=== PATIENT | male | born 1985 | race Asian ===

== ENCOUNTER 2017-03-13 14:57 | Inpatient (IN) | payer OTHER ==
[~2017-03-13] VITALS: Ht 165.1 cm; Wt 82.6 kg
[~2017-03-13 14:57] MED LIST: FERROUS SULFATE 325MG TAB PO SCH
[2017-03-13 16:07] LABS: ALBUMIN 3.6 GM/DL (3.2-5.2); ALKALINE PHOSPHATASE 18 U/L (45-117); ALT/SGPT 24 U/L (12-78); ANION GAP 10 MEQ/L (8-16); AST/SGOT 34 U/L (15-37); BILIRUBIN,TOTAL 0.4 MG/DL (0.2-1.0); BLOOD UREA NITROGEN 12 MG/DL (7-18); CALCIUM LEVEL 8.4 MG/DL (8.5-10.1); CARBON DIOXIDE LEVEL 24 MEQ/L (21-32); CHLORIDE LEVEL 106 MEQ/L (98-107); CREATININE FOR GFR 1.32 MG/DL (0.70-1.30); GLOMERULAR FILTRATION RATE > 60.0 (>60); GLUCOSE, FASTING 82 MG/DL (70-105); POTASSIUM SERUM 4.2 MEQ/L (3.5-5.1); SODIUM LEVEL 140 MEQ/L (136-145); TOTAL PROTEIN 7.2 GM/DL (6.4-8.2)
[2017-03-13] MEDS ORDERED: AMBI10TA PO (16:15)
[2017-03-13] MEDS ORDERED: FERR325T PO (16:15)
[2017-03-13] MEDS ORDERED: PATIENT COMMENT (16:19)
[2017-03-13 16:42] LABS: ADD MORPHOLOGY? YES; BASO % 0.3 % (0.0-1.0); EOS # 0.1 K/mm3 (0.0-0.50); EOS % 2.1 % (0.0-3.0); LARGE UNSTAINED CELL # 0.1 K/mm3 (0.0-0.4); LARGE UNSTAINED CELL % 1.8 % (0.0-4.0); LYMPH # 1.3 K/mm3 (1.5-4.5); LYMPH % 23.2 % (24.0-44.0); MEAN CORPUSCULAR HGB CONC 28.7 g/dl (32.0-36.5); MONO # 0.4 K/mm3 (0.0-0.8); MONO % 7.6 % (0.0-5.0); NEUTROPHILS # 3.5 K/mm3 (1.8-7.7); PLATELET COUNT, AUTOMATED 216 k/mm3 (150-450); RED CELL DISTRIBUTION WIDTH 20.5 % (11.5-14.5); WHITE BLOOD COUNT 5.4 K/mm3 (4.0-10.0)
[2017-03-13 17:57] LABS: RETIC HEMOGLOBIN CONTENT CHr 18.7 PG (24-36); RETICULOCYTE % ADVIA2120 1.55 % (0.5-1.5)
[2017-03-13 18:07] LABS: ANISOCYTOSIS 2+; HYPOCHROMASIA 3+; MICROCYTOSIS 3+
[2017-03-13 18:09] LABS: SCHISTOCYTES 1+; TARGET CELLS 1+
--- NOTE | 2017-03-13 18:09 | HPEPDOC ---
General Date of Admission Mar 13, 2017 at 17:30 Chief Complaint The patient is a 31-year-old male admitted with a reason for visit of Rectal Bleeding. 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 generalized fatigue and shortness of breath that has been occurring for the past 1 week. The patient states that he is normally a very active and healthy individual but that he feels his exercise tolerance has decreased drastically over the past 1 week, he thinks he could not climb one flight of stairs without becoming acutely short of breath. He is also noticed that for the past week whenever he goes from a laying down or seated position to standing he becomes dizzy for a couple minutes, he denies loss of consciousness or passing out. The patient carries a history of thalassemia type B that was diagnosed in 2011, he has received one blood transfusion in the past in the same year and was also given a course of iron infusion. The patient also states that he has hemorrhoids that were banded one year ago. He has also undergone upper endoscopy and colonoscopy in the year 2012 for bright red blood per rectum. He states that he has had bright red blood per rectum again that began 6 months ago but has been very intermittent until one week ago, he now says that every bowel movement produces blood mixed in the stool, on the and in the toilet both bright red and dark coffee- ground in color. He denies any abdominal pain or pain with defecation, denies any changes in urinary habit or blood in urine, denies pain with urination. He denies nausea or vomiting or change in vision. The patient denies any changes in his diet or consuming red colored food. He otherwise states that he is healthy and has no complaints and is in no pain. Home Medications Scheduled Ferrous Sulfate (Ferrous Sulfate) 325 Mg Tab, 325 MG PO DAILY, (Reported) NEW MED, HAS NOT STARTED YET Zolpidem Tartrate (Ambien) 10 Mg Tab, 10 MG PO QHS, (Reported) Miscellaneous Medications [Patient Comment] , (Reported) PATIENT WAS TAKING TRAZODONE AND PRAZOSIN, HASN'T TAKEN IN ABOUT A MONTH BECAUSE HE DID NOT LIKE THE SIDE EFFECTS Allergies Coded Allergies: Penicillins (Verified Allergy, Severe, swelling, 03/13/17) Past Medical History Medical History Thalassemia type B hemorrhoids status post banding procedure 2016 Surgical History MRI banding procedure 2016 Oral surgery for a cavity Patient states that 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 and had surgery to his right ankle Family History The patient states that many members of his family have anemia and that his brother is going through similar symptoms to his right now Dad has hypertension There is a history of lung, thyroid and liver cancer in the family Social History * Smoker: former Smoker (patient states that he stopped smoking in 2016, prior to this to smoking one to 2 packs per week and began when he was a teen) Alcohol: rarely (1-3 glasses of wine per week since he was a teenager) Drugs: denies 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 Review of Symptoms Constitutional: Denies: Chills, Fever, Malaise Eyes: Reports: Other, Denies: Pain, Vision change, Conjunctivae inflammation, Eyelid inflammation Skin: Denies: Rash Pulmonary: Denies: Dyspnea, Cough Cardiovascular: Denies: Chest Pain, Palpitations Gastrointestinal: Reports: Melena, Denies: Nausea, Vomiting, Abdominal Pain, Diarrhea, Constipation Genitourinary: Denies: Dysuria, Frequency Hematologic: Denies: Bruising Neurological: Reports: Weakness, Denies: Numbness Psych: Reports: Mood Normal Physical Examination General Exam: Positive: Alert, Cooperative, No Acute Distress Eye Exam: Positive: Conjunctiva & lids normal, Other Eye Symptoms (pallor conjunctival bilateral), Negative: EOMI, Sclera icteric, Ptosis Neck Exam: Positive: Supple Chest Exam: Positive: Clear to auscultation, Normal air movement, Negative: Rales, Rhonchi, Wheezing, Diminished Heart Exam: Positive: Rate Normal, Regular Rhythm, Normal S1, Normal S2, Negative: Tachycardic, Bradycardic Abdomen Exam: Positive: Normal bowel sounds, Soft, Negative: BS Hyperactive, BS Hypoactive, Tenderness, Hepatospenomegaly Extremity Exam: Positive: Normal pulses, Negative: Clubbing, Cyanosis, Edema, Tenderness, Swelling Psych Exam: Positive: Mental status NL Vital Signs Vital Signs Date Time Temp Pulse Resp B/P (MAP) Pulse Ox O2 Delivery O2 Flow Rate FiO2 03/13/17 15:04 98.0 90 16 134/79 (97) 99 Laboratory Data Labs 24H Laboratory Tests 2 03/13/17 15:34: White Blood Count 5.4, Red Blood Count 3.98L, Hemoglobin 6.7*L, Hematocrit 23.5L , Mean Corpuscular Volume 59.0L, Mean Corpuscular Hemoglobin 17.0L, Mean Corpuscular Hemoglobin Concent 28.7L, Red Cell Distribution Width 20.5H, Platelet Count 216, Neutrophils (%) (Auto) 65.0, Lymphocytes (%) (Auto) 23.2L, Monocytes (%) (Auto) 7.6H, Eosinophils (%) (Auto) 2.1, Basophils (%) (Auto) 0.3 , Neutrophils # (Auto) 3.5, Lymphocytes # (Auto) 1.3L, Monocytes # (Auto) 0.4, Eosinophils # (Auto) 0.1, Basophils # (Auto) 0.0, Large Unclassified Cells % 1.8 , Large Unclassified Cells # 0.1, Anion Gap 10, Glomerular Filtration Rate > 60.0, Blood Urea Nitrogen 12, Creatinine 1.32H, Sodium Level 140, Potassium Level 4.2, Chloride Level 106, Carbon Dioxide Level 24, Calcium Level 8.4L, Aspartate Amino Transf (AST/SGOT) 34, Alanine Aminotransferase (ALT/SGPT) 24, Alkaline Phosphatase 18L, Total Bilirubin 0.4, Total Protein 7.2, Albumin 3.6, Albumin/Globulin Ratio 1.00 03/13/17 17:40: Absolute Reticulocyte Count 60, Percent Reticulocyte Count 1.55H, Reticulocyte Hgb Content (CHr) 18.7L CBC/BMP Laboratory Tests 03/13/17 15:34 Red Blood Count 3.98 L, Mean Corpuscular Volume 59.0 L, Mean Corpuscular Hemoglobin 17.0 L, Mean Corpuscular Hemoglobin Concent 28.7 L, Red Cell Distribution Width 20.5 H, Neutrophils (%) (Auto) 65.0, Lymphocytes (%) (Auto) 23.2 L, Monocytes (%) (Auto) 7.6 H, Eosinophils (%) (Auto) 2.1, Basophils (%) ( Auto) 0.3, Neutrophils # (Auto) 3.5, Lymphocytes # (Auto) 1.3 L, Monocytes # ( Auto) 0.4, Eosinophils # (Auto) 0.1, Basophils # (Auto) 0.0, Calcium Level 8.4 L , Aspartate Amino Transf (AST/SGOT) 34, Alanine Aminotransferase (ALT/SGPT) 24, Alkaline Phosphatase 18 L, Total Bilirubin 0.4, Total Protein 7.2, Albumin 3.6 Problems (1) Rectal bleeding Status: Acute Response to Treatment: Stable Problem Text: Stool occult in emergency department was grossly positive Patient is status post banding for hemorrhoids in 2016 by GI doctor in [facility] Patient's hemoglobin upon presentation was 6 Have ordered iron, reticulocyte count, TIBC, ferritin, folate and [id number] Will transfuse 2 units of packed red blood cells and repeat H&H Continue to monitor (2) Blood loss anemia Status: Acute Response to Treatment: Stable Problem Text: Stool occult in emergency department was grossly positive Will consult GI for possible colonoscopy and upper endoscopy tomorrow Patient's hemoglobin upon presentation was 6 Have ordered iron, reticulocyte count, TIBC, ferritin, folate and [id number] Will transfuse 2 units of packed red blood cells and repeat H&H Continue to monitor (3) Dizziness Status: Acute Response to Treatment: Stable Problem Text: Likely secondary to anemia will begin IV fluid hydration and continue to monitor (4) Shortness of breath Status: Acute Response to Treatment: Stable Problem Text: Likely secondary to anemia Patient did not appear short of breath on exam and did not state that he was short of breath Will continue to monitor Patient will receive 2 units of packed red blood cells (5) Thalassemia trait, beta Status: Chronic Response to Treatment: Stable Problem Text: History of Will transfuse 2 units packed blood cells and repeat H&H (6) ILYA (acute kidney injury) Status: Acute Response to Treatment: Stable Problem Text: Family 1.32 Patient was mildly orthostatic in emergency Department We will begin normal saline fluid hydration (7) DVT prophylaxis Status: Acute Response to Treatment: Stable Problem Text: SCD teds Plan / VTE VTE Prophylaxis Ordered?: Yes GME ATTESTATION GME ATTESTATION My preceptor for this patient encounter was physically present in the building during the encounter and was fully available. As needed, all aspects of the patient interview, examination, medical decision making process, and medical care plan development were reviewed and approved by the preceptor. Preceptor is aware and concurs with the plan as stated in the body of this note and will attest to such by his/her cosignature. DEJON PHIPPS DO Mar 13, 2017 18:09
[2017-03-13 18:10] LABS: FERRITIN 4 NG/ML (26-388); PERCENT SATURATION 3.9 % (19.7-37.4); TOTAL IRON BINDING CAPACITY 485 UG/DL (250-450)
[2017-03-13] MEDS: NS 1,000 ML IV SCH (18:15)
[2017-03-13 18:47] LABS: VITAMIN B12 LEVEL 417 PG/ML (247-911)
[2017-03-13 18:48] LABS: FOLATE > 24.0 NG/ML (>5.4)
[2017-03-13] MEDS ORDERED: zolPIDEM TARTRATE 10MG TAB PO SCH (21:00)
[2017-03-13] MEDS: zolPIDEM TARTRATE 5 MG TAB PO SCH (21:00)
[2017-03-13] MEDS ORDERED: zolPIDEM TARTRATE 5 MG TAB PO SCH (21:53)
[2017-03-14] MEDS ORDERED: GOLYTELY SOLN 4000 ML BTL PO ONE (06:00)
[2017-03-14 07:47] LABS: ANION GAP 8 MEQ/L (8-16); BLOOD UREA NITROGEN 12 MG/DL (7-18); CALCIUM LEVEL 7.7 MG/DL (8.5-10.1); CARBON DIOXIDE LEVEL 24 MEQ/L (21-32); CHLORIDE LEVEL 108 MEQ/L (98-107); CREATININE FOR GFR 1.32 MG/DL (0.70-1.30); GLOMERULAR FILTRATION RATE > 60.0 (>60); GLUCOSE, FASTING 89 MG/DL (70-105); POTASSIUM SERUM 3.8 MEQ/L (3.5-5.1); SODIUM LEVEL 140 MEQ/L (136-145)
[2017-03-14 07:55] LABS: DIFF SLIDE NUMBER 83; MEAN CORPUSCULAR HEMOGLOBIN 19.7 pg (27.0-33.0); MEAN CORPUSCULAR HGB CONC 31.1 g/dl (32.0-36.5); MEAN CORPUSCULAR VOLUME 63.5 fl (80.0-96.0); PLATELET COUNT, AUTOMATED 193 k/mm3 (150-450); RED CELL DISTRIBUTION WIDTH 23.8 % (11.5-14.5); WHITE BLOOD COUNT 4.4 K/mm3 (4.0-10.0)
[2017-03-14 08:20] VITALS: BP 144/98
[2017-03-14 08:41] LABS: ANISOCYTOSIS 2+; BANDS 1 % (< 11); EOSINOPHILS 2 % (0-5); HYPOCHROMASIA 2+; POIKILOCYTOSIS 1+
[2017-03-14 08:42] LABS: MICROCYTOSIS 2+; SCHISTOCYTES 1+
--- NOTE | 2017-03-14 15:11 | IPN ---
DATE: 03/14/2017 Patient seen and examined. No acute events overnight. Patient continued to have bright red blood per rectum. Denies any chest pain, pressure, discomfort. Denies any shortness of breath. Currently undergoing bowel prep. VITAL SIGNS: Temperature 98.3, pulse 63, respirations 16, blood pressure 114/66, pulse oximetry 97% on room air. LABORATORY: WBC 4.4, hemoglobin and hematocrit (H and H) 8/25.8, platelets 183. Chemistry: Sodium 140, potassium 3.8, chloride 108, bicarbonate 24, BUN 12, creatinine 1.32. PHYSICAL EXAMINATION: GENERAL: Patient alert and oriented times three. No acute distress. HEENT: Normocephalic, atraumatic. PULMONARY: Bilateral clear to auscultation. CARDIAC: Regular rate and rhythm. Normal S1, S2. ABDOMEN: Soft, nontender, nondistended. Positive bowel sounds. No hepatosplenomegaly. EXTREMITIES: No edema bilateral lower extremities. ASSESSMENT AND PLAN: This is a 31-year-old male patient, active duty from [place], underlying medical history of thalassemia type B, hemorrhoids status post banding and procedure in 09/2016. Bending procedure 09/2016 presented with complaints of lightheadedness upon standing, bright red blood per rectum. Per patient, patient has been bleeding for a while, generalized fatigue and shortness of breath that has been occurring for the past one week. PROBLEMS: 1. Symptomatic anemia with acute blood loss anemia with rectal bleeding. Fecal occult positive. Transfused 2 units packed red blood cells. Follow up hemoglobin and hematocrit (H and H). Anemia workup appreciated. Gastroenterology consulted. Will be undergoing esophagogastroduodenoscopy (EGD)/colonoscopy later today. Continue to monitor. Follow up hemoglobin and hematocrit (H and H). Transfuse as needed. 2. Lightheadedness secondary to acute blood loss anemia. Refer to above. 3. Shortness of breath secondary to acute blood loss anemia. Refer to above. 4. History of beta-thalassemia trait. History of transfusion 2 units packed red blood cells in the past. Will monitor hemoglobin and hematocrit (H and H). Continue to follow. Outpatient follow up. 5. Acute kidney injury (ILYA). Creatinine 1.3, unknown baseline. Will continue to follow BUN and creatinine. 6. Deep venous thrombosis (DVT) prophylaxis. Avoid pharmacological anticoagulation. Sequential compression device. DISPOSITION: Pending esophagogastroduodenoscopy (EGD)/colonoscopy. Monitor hemoglobin and hematocrit (H and H).
[2017-03-14 19:35] VITALS: BP 143/79
[2017-03-14] MEDS ORDERED: PROPOFOL 500 MG/50 ML VIAL As Ordered ONE (20:23)
[2017-03-14] MEDS ORDERED: LIDOCAINE 2% INJ 100 MG/5 ML SDV (FOR ANES.) As Ordered ONE (20:23)
--- NOTE | 2017-03-14 21:01 | ROOR ---
Patient Name: Chip Segal Procedure Date: 03/14/2017 7:58 PM Date of : 1985 Age: 31 Gender: Male Note Status: Finalized Procedure: Colonoscopy Indications: Hematochezia, Anal bleeding, (pt with baseline Hb ~10gm related to Thalassemia, pt presents with persistent rectal bleeding, symptomatic anemia) Providers: Rajeev BOYKIN MD Referring MD: ANTONY HARDY MD, 2. Inpatient 2. Inpatient Requesting Provider: Medicines: Monitored Anesthesia Care Complications: No immediate complications. Procedure: Pre-Anesthesia Assessment: - The heart rate, respiratory rate, oxygen saturations, blood pressure, adequacy of pulmonary ventilation, and response to care were monitored throughout the procedure. The Colonoscope was introduced through the anus and advanced to 5 cm into the ileum. The colonoscopy was performed without difficulty. The patient tolerated the procedure well. The quality of the bowel preparation was good. Findings: The perianal and digital rectal examinations were normal. Pertinent negatives include no anal lesion or abnormality was detected. Non-thrombosed internal hemorrhoids were found during retroflexion. The hemorrhoids were Grade II (internal hemorrhoids that prolapse but reduce spontaneously) and Grade III (internal hemorrhoids that prolapse but require manual reduction). The entire examined colon appeared normal. The terminal ileum appeared normal. Impression: - Moderate internal hemorrhoids (grade 2/3). - The entire examined colon is normal. - The examined portion of the ileum was normal. - No specimens collected. Recommendation: - Refer to a surgeon for hemorrhoidectomy. Rajeev Boykin MD Rajeev BOYKIN MD 03/14/2017 9:01:32 PM This report has been signed electronically. Number of Addenda: 0 Note Initiated On: 03/14/2017 7:58 PM Estimated Blood Loss: Estimated blood loss: none.
--- NOTE | 2017-03-14 21:06 | ROOR ---
Patient Name: Chip Segal Procedure Date: 03/14/2017 9:02 PM Date of : 1985 Age: 31 Gender: Male Note Status: Finalized Procedure: Upper GI endoscopy Indications: Acute post hemorrhagic anemia, Iron deficiency anemia secondary to chronic blood loss, Unexplained iron deficiency anemia, (pt with thalassemia) Providers: Rajeev BOYKIN MD Referring MD: ANTONY HARDY MD, 2. Inpatient 2. Inpatient Requesting Provider: Medicines: Monitored Anesthesia Care Complications: No immediate complications. Procedure: Pre-Anesthesia Assessment: - The heart rate, respiratory rate, oxygen saturations, blood pressure, adequacy of pulmonary ventilation, and response to care were monitored throughout the procedure. The Endoscope was introduced through the mouth, and advanced to the second part of duodenum. Findings: The examined esophagus was normal. The entire examined stomach was normal. The examined duodenum was normal. Biopsies for histology were taken with a cold forceps for evaluation of celiac disease. Impression: - Normal esophagus. - Normal stomach. - Normal examined duodenum. Biopsied. Recommendation: - Observe patient's clinical course. Rajeev Boykin MD Rajeev BOYKIN MD 03/14/2017 9:06:10 PM This report has been signed electronically. Number of Addenda: 0 Note Initiated On: 03/14/2017 9:02 PM Estimated Blood Loss: Estimated blood loss: none.
[2017-03-14] MEDS ORDERED: ONDANSETRON 4MG/2ML VIAL (J2405) IV PRN (21:15)
[2017-03-14] MEDS ORDERED: LR 1,000 ML IV SCH (21:15)
[2017-03-14 21:30] VITALS: BP 122/82
[2017-03-14 22:00] VITALS: BP 136/86
[2017-03-14] MEDS: NS 1,000 ML IV SCH (22:15)
[2017-03-14 23:00] VITALS: BP 134/72
[2017-03-15] VITALS: BP 137/70
[2017-03-15] MEDS: zolPIDEM TARTRATE 5 MG TAB PO SCH (00:28)
[2017-03-15] MEDS: NS 1,000 ML IV SCH (00:52)
[2017-03-15 01:00] VITALS: BP 130/80
[2017-03-15 02:00] VITALS: BP 132/79
[2017-03-15 04:45] VITALS: BP 118/74
[2017-03-15 05:36] LABS: ADD MORPHOLOGY? YES; BASO % 0.2 % (0.0-1.0); EOS # 0.1 K/mm3 (0.0-0.50); EOS % 2.6 % (0.0-3.0); LARGE UNSTAINED CELL # 0.1 K/mm3 (0.0-0.4); LYMPH # 1.3 K/mm3 (1.5-4.5); LYMPH % 23.7 % (24.0-44.0); MEAN CORPUSCULAR HEMOGLOBIN 20.5 pg (27.0-33.0); MEAN CORPUSCULAR HGB CONC 31.4 g/dl (32.0-36.5); MEAN CORPUSCULAR VOLUME 65.4 fl (80.0-96.0); MONO # 0.4 K/mm3 (0.0-0.8); MONO % 7.3 % (0.0-5.0); NEUTROPHILS # 3.4 K/mm3 (1.8-7.7); NEUTROPHILS % 64.2 % (36.0-66.0); PLATELET COUNT, AUTOMATED 197 k/mm3 (150-450); RED CELL DISTRIBUTION WIDTH 24.8 % (11.5-14.5); WHITE BLOOD COUNT 5.3 K/mm3 (4.0-10.0)
[2017-03-15 05:39] LABS: ANION GAP 8 MEQ/L (8-16); BLOOD UREA NITROGEN 11 MG/DL (7-18); CALCIUM LEVEL 8.1 MG/DL (8.5-10.1); CARBON DIOXIDE LEVEL 26 MEQ/L (21-32); CHLORIDE LEVEL 107 MEQ/L (98-107); CREATININE FOR GFR 1.28 MG/DL (0.70-1.30); GLOMERULAR FILTRATION RATE > 60.0 (>60); GLUCOSE, FASTING 83 MG/DL (70-105); POTASSIUM SERUM 3.8 MEQ/L (3.5-5.1); SODIUM LEVEL 141 MEQ/L (136-145)
[2017-03-15 06:43] LABS: ANISOCYTOSIS 3+; HYPOCHROMASIA 2+; MICROCYTOSIS 3+
[2017-03-15 06:44] LABS: TARGET CELLS 1+
[2017-03-15 08:00] VITALS: BP 119/65
[2017-03-15] MEDS ORDERED: COLA100C3 PO (10:49)
[2017-03-15] MEDS ORDERED: ASCO25TA PO (10:49)
[2017-03-15 12:00] VITALS: BP 138/58
--- NOTE | 2017-03-15 12:19 | DS.PDOC ---
Discharge Summary General Date of Admission Mar 13, 2017 at 17:30 Date of Discharge 03-15-17 Discharge Summary PROCEDURES PERFORMED DURING STAY: colonoscopy, EGD ADMITTING DIAGNOSES: 1. Rectal bleeding 2. Blood loss anemia 3. Dizziness 4. Shortness of breath 5. Thalassemia trait, beta 6. Acute kidney injury DISCHARGE DIAGNOSES: 1. Symptomatic anemia with acute blood loss anemia with rectal bleeding 2. Lightheadedness secondary to acute blood loss anemia 3. Shortness of breath secondary to acute blood loss anemia 4. History of beta thalassemia trait 5. Acute kidney injury COMPLICATIONS/CHIEF COMPLAINT: Rectal Bleeding, SOB, fatigue. 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 generalized fatigue and shortness of breath that has been occurring for the preceeding 1 week. HOSPITAL COURSE: During the course of the patient's hospital stay he was found to be occult blood grossly positive in the ED and did undergo colonoscopy and upper endoscopy with gastroenterology where it was discovered that he had Grade 2 and 3 internal non-thrombosed hemorrhoids. The patient received 3 units of blood during his stay and on day of discharge hemoglobin was 8.6. The patient had 1 bright red bloody bowel movement the night before discharge. General surgery was consulted and saw the patient and recommended that he follow up within 1 week for hemorrhoidectomy. The patient was asked not to return to active duty until the bleeding had resolved and he had followed up with healthcare provider. He will be given iron, vitamin C, stool softener. Patient was instructed that if he becomes dizzy, fatigued or has shortness of breath to come back to the emergency department for blood check. On day of discharge he seemed happy to be going home and understood he needed to follow-up with Gen. surgery for hemorrhoidectomy within 1 week of discharge. DISCHARGE MEDICATIONS: Please see below. ALLERGIES: Please see below. PHYSICAL EXAMINATION ON DISCHARGE: VITAL SIGNS: Please see below. GENERAL: Laying down comfortably in bed, pleasant, comfortable in no acute distress HEENT: Normocephalic atraumatic, EOMI, nares patent bilaterally, moist mucous membranes NECK: Supple CARDIOVASCULAR EXAMINATION: Normal S1, S2, no murmurs, rubs, gallops appreciated. NSR. RESPIRATORY EXAMINATION: Good air expansion and effort bilaterally, no wheezing , rales, rhonchi, crackles appreciated. Clear to auscultation bilaterally. ABDOMINAL EXAMINATION: Soft, nondistended, no rebound rigidity or guarding, no organomegaly. NABS 4 EXTREMITIES: Nailbeds without pitting or clubbing, no cyanosis or edema appreciated SKIN: Intact NEUROLOGICAL EXAMINATION: No focal deficits appreciated PSYCHIATRIC EXAMINATION: Normal affect and appropriate demeanor LABORATORY DATA: Please see below. IMAGING: none PROGNOSIS: Stable ACTIVITY: Patient was instructed not to return to active duty until bleeding stopped and he was evaluated by healthcare professional, he was given a note that stated this to give to his superiors. The patient understood fully and had no questions. DIET: As tolerated DISCHARGE PLAN: Please follow up with primary care doctor and surgery within 5- 7 days of discharge. Please do not return to active duty until bleeding stops and evaluated by healthcare professional. If patient experiences fatigue, shortness of breath, dizziness he was asked to come to the emergency department as soon as possible for h/h check. DISPOSITION: Stable DISCHARGE INSTRUCTIONS: 1. Follow up with surgery within 5-7 days of discharge 2. Follow up with PCP within 5-7 days of discharge 3. Do not return to active duty until bleeding has stopped and you have been evaluated by healthcare professional. ITEMS TO FOLLOWUP ON ON OUTPATIENT: 1. Follow up with surgery within 5-7 days of discharge 2. Follow up with PCP within 5-7 days of discharge 3. Do not return to active duty until bleeding has stopped and you have been evaluated by healthcare professional. DISCHARGE CONDITION: Stable TIME SPENT ON DISCHARGE: Greater than 20 minutes. Vital Signs/I&Os Vital Signs Date Time Temp Pulse Resp B/P (MAP) Pulse Ox O2 Delivery O2 Flow Rate FiO2 03/15/17 12:00 98.6 74 18 138/58 (84) 97 Room Air I&O- Last 24 Hours up to 6 AM 03/15/17 05:59 Intake Total 3580 ml Output Total 750 ml Balance 2830 ml Laboratory Data Labs 24H Laboratory Tests 2 03/15/17 05:01: White Blood Count 5.3, Red Blood Count 4.19L, Hemoglobin 8.6L, Hematocrit 27.4L , Mean Corpuscular Volume 65.4L, Mean Corpuscular Hemoglobin 20.5L, Mean Corpuscular Hemoglobin Concent 31.4L, Red Cell Distribution Width 24.8H, Platelet Count 197, Neutrophils (%) (Auto) 64.2, Lymphocytes (%) (Auto) 23.7L, Monocytes (%) (Auto) 7.3H, Eosinophils (%) (Auto) 2.6, Basophils (%) (Auto) 0.2 , Neutrophils # (Auto) 3.4, Lymphocytes # (Auto) 1.3L, Monocytes # (Auto) 0.4, Eosinophils # (Auto) 0.1, Basophils # (Auto) 0.0, Large Unclassified Cells % 2.0 , Large Unclassified Cells # 0.1, Platelet Estimate NORMAL, Hypochromasia 2+, Anisocytosis 3+, Microcytosis 3+, Target Cells 1+, Anion Gap 8, Glomerular Filtration Rate > 60.0, Blood Urea Nitrogen 11, Creatinine 1.28, Sodium Level 141, Potassium Level 3.8, Chloride Level 107, Carbon Dioxide Level 26, Calcium Level 8.1L CBC/BMP Laboratory Tests 03/14/17 15:48 03/15/17 02:31 03/15/17 05:01 Red Blood Count 4.19 L, Mean Corpuscular Volume 65.4 L, Mean Corpuscular Hemoglobin 20.5 L, Mean Corpuscular Hemoglobin Concent 31.4 L, Red Cell Distribution Width 24.8 H, Neutrophils (%) (Auto) 64.2, Lymphocytes (%) (Auto) 23.7 L, Monocytes (%) (Auto) 7.3 H, Eosinophils (%) (Auto) 2.6, Basophils (%) ( Auto) 0.2, Neutrophils # (Auto) 3.4, Lymphocytes # (Auto) 1.3 L, Monocytes # ( Auto) 0.4, Eosinophils # (Auto) 0.1, Basophils # (Auto) 0.0, Calcium Level 8.1 L Discharge Medications Scheduled Ascorbic Acid (Vitamin C) 250 Mg Tab, 250 MG PO DAILY Docusate Sodium (Colace) 100 Mg Cap, 100 MG PO DAILY Ferrous Sulfate (Ferrous Sulfate) 325 Mg Tab, 325 MG PO DAILY, (Reported) NEW MED, HAS NOT STARTED YET Zolpidem Tartrate (Ambien) 10 Mg Tab, 10 MG PO QHS Allergies Coded Allergies: Penicillins (Verified Allergy, Severe, swelling, 03/13/17) GME ATTESTATION GME ATTESTATION My preceptor for this patient encounter was physically present in the building during the encounter and was fully available. As needed, all aspects of the patient interview, examination, medical decision making process, and medical care plan development were reviewed and approved by the preceptor. Preceptor is aware and concurs with the plan as stated in the body of this note and will attest to such by his/her cosignature. ATTENDING NOTE I have both independently examined this patient as well as reviewed the note. I have discussed in detail with the resident the findings and plan of treatment as documented in the residents note. I will continue to follow the patient and offer further guidance to the patients care as necessary during this hospital stay. DEJON Madrigal DO Mar 15, 2017 12:19 ITALIA MILLER MD Mar 16, 2017 06:51
[2017-03-15] MEDS ORDERED: AMBI10TA PO (13:53)
--- NOTE | 2017-03-15 22:41 | CR ---
DATE OF CONSULTATION: 03/15/2017 REASON FOR CONSULTATION: Rectal bleeding. HISTORY OF PRESENT ILLNESS: The patient is a 31-year-old male who presents with rectal bleeding. He has a history of thalassemia type B and hemorrhoids since 2012. Back then, he had hemorrhoidectomy completed that lasted him about three years without any problems. Then in September of last year, he started to have bleeding again. He was evaluated and had banding done in the office which lasted him a couple of months. However, his bleeding has returned. For the past couple of weeks, he has been having more blood in his stool as well as starting to feel weak. He came into the emergency room yesterday with a hemoglobin that was low at 6.7. He was given a transfusion and scoped by Dr. Boykin who noted that there is no active bleeding anywhere, but he did have internal hemorrhoids only that were not excoriated and not actively bleeding. His recommendation was for outpatient followup for hemorrhoidectomy. However, the patient was admitted to do needing blood transfusion. This morning, his hemoglobin is stable. However, he is still having blood with his bowel movements, so I was asked to evaluate him inpatient. He says that his bowel movements are normal. He does not have any blood in between bowel movements. There is blood in the toilet and when he wipes, but it is only with bowel movements. He does not have problems with diffuse bleeding or drainage throughout the day. This has been going on for awhile; nothing acutely has changed in the last few days. He does feel much improved after having the transfusion, tolerating diet and would like to discuss having something else done surgically because this has been getting worse for him. He has not been using any treatments at home prior to this. He was given a prescription for Anusol suppositories but he has not started them yet because he came into the ER for evaluation. PAST MEDICAL HISTORY Thalassemia type B, hemorrhoids. PAST SURGICAL HISTORY: Hemorrhoidectomy, oral surgery for cavities, hemorrhoid banding. FAMILY HISTORY: Noncontributory. SOCIAL HISTORY: Social alcohol. Denies any drug or tobacco abuse. FAMILY HISTORY: Noncontributory. ALLERGIES: PENICILLIN. MEDICATIONS: Please see medication rec. REVIEW OF SYSTEMS: Pertinent positives and negatives as stated in history of present illness (HPI). PHYSICAL EXAMINATION: GENERAL: Alert and oriented times three. No acute distress. VITALS: Temperature 98.9, pulse 87, respirations 18, blood pressure 119/65, pulse oximetry 99% room air. HEENT: Pupils equal, round, react to light and accommodation. HEART: S1, S2, regular rate and rhythm. LUNGS: Clear to auscultation bilaterally. ABDOMEN: Soft, nontender, nondistended. RECTAL: Exam deferred at this time. EXTREMITIES: No clubbing, cyanosis or edema. LABORATORY DATA: Hemoglobin is 8.6 and has been stable since admission after receiving the two units. ASSESSMENT/PLAN: Again, the patient is a 31-year-old male status post EGD and colonoscopy with internal hemorrhoids and acute blood loss anemia secondary to bleeding internal hemorrhoids. I did review the images from Dr. Boykin's scope yesterday. There are internal hemorrhoids that do not appear to be actively bleeding or excoriated. There are no signs of rectal ulcers. There is no acute bleeding. No indication for emergent procedure at this time. Recommendation is for discharge home and continue to use his Anusol suppositories. He will followup me in the office this week for hemorrhoid banding. That is a procedure that I am unable to do inpatient, but he should be able to tolerate having this completed as an outpatient. I discussed this in detail with him. I also explained to him that if this fails after a month, then we could also go back in and do an open hemorrhoidectomy; however, we will attempt banding procedure at least one time first. Patient agreed to the plan and I have discussed this with the primary team who will plan on discharging him home today.
== END 2017-03-15 14:20 | disposition home or self-care (01) | DRG 378 ==
LOC: M ED 15:41 → M ED INP 17:30 → M PCU 03-14 21:29
PROVIDERS: ADMIT Internal Medicine; ATTEND Hospitalist
PROC: 30233N1 Transfusion of Nonautologous Red Blood Cells into Peripheral Vein, Percutaneous Approach (ICD-10-PCS; principal; 2017-03-13)
PROC: 0DJD8ZZ Inspection of Lower Intestinal Tract, Via Natural or Artificial Opening Endoscopic (ICD-10-PCS; 2017-03-14)
PROC: 0DB98ZX Excision of Duodenum, Via Natural or Artificial Opening Endoscopic, Diagnostic (ICD-10-PCS; 2017-03-14)
DX: K62.5 Hemorrhage of anus and rectum (principal); D62 Acute posthemorrhagic anemia; N17.9 Acute kidney failure, unspecified; D56.3 Thalassemia minor; K64.1 Second degree hemorrhoids; Z79.899 Other long term (current) drug therapy; Z88.0 Allergy status to penicillin; K64.2 Third degree hemorrhoids

== ENCOUNTER 2017-04-23 11:00 | Day surgery (SDC) | payer OTHER ==
[~2017-04-23] VITALS: Ht 167.6 cm; Wt 83.0 kg
[~2017-04-23 11:00] MED LIST changes: +AMBI10TA PO; +ASCO25TA PO; +COLA100C3 PO; +FERR325T PO; -FERROUS SULFATE 325MG TAB PO SCH; +PATIENT COMMENT; +PRAZ5CAP PO; +TRAZ50TA4 PO; +ZANA4CAP PO
[2017-04-23] MEDS ORDERED: LR 1,000 ML IV SCH ×2 (11:15→16:45)
[2017-04-23] MEDS ORDERED: LR 1,000 ML IV ONE (11:15)
[2017-04-23] MEDS ORDERED: BUPIVACAINE/EPIN 0.25% 30 ML VIAL As Ordered ONE (15:18)
[2017-04-23] MEDS ORDERED: fentaNYL 100 MCG/2 ML INJECTION (J3010) As Ordered ONE (15:20)
[2017-04-23] MEDS ORDERED: LIDOCAINE 2% INJ 100 MG/5 ML SDV (FOR ANES.) As Ordered ONE (15:20)
[2017-04-23] MEDS ORDERED: PROPOFOL 200 MG/20 ML VIAL As Ordered ONE ×2 (15:20→15:53)
[2017-04-23] MEDS ORDERED: MIDAZOLAM INJ 2 MG/2 ML VIAL (J2250) As Ordered ONE (15:20)
[2017-04-23] MEDS ORDERED: CHLOROPROCAINE 2 % INJ PRES.FREE 20 ML VIAL (J2400) As Ordered ONE (15:20)
[2017-04-23] MEDS ORDERED: THROMBIN SOLN 20,000 UNITS KIT As Ordered ONE (16:03)
[2017-04-23] MEDS ORDERED: ONDANSETRON 4MG/2ML VIAL (J2405) IV PRN (16:45)
[2017-04-23] MEDS ORDERED: NORCO, ANEXSIA 5/325MG TABLET (HYDROcodone/ACETAMINOPHEN) PO PRN (16:45)
[2017-04-23] MEDS ORDERED: METOCLOPRAMIDE INJ 10MG/2ML VIAL (J2765) IV PRN (16:45)
[2017-04-23] MEDS: PERCOCET 5MG/325MG TAB PO PRN ×2 (17:02→19:13)
[2017-04-23] MEDS: fentaNYL 100 MCG/2 ML INJECTION (J3010) IV PRN ×4 (17:08→17:24)
[2017-04-23 19:00] VITALS: BP 136/65
--- NOTE | 2017-04-23 22:21 | RO ---
DATE OF PROCEDURE: 04/23/2017 PREOPERATIVE DIAGNOSIS: Internal hemorrhoids. POSTOPERATIVE DIAGNOSIS: Internal hemorrhoids. OPERATIVE PROCEDURE: Excisional hemorrhoidectomy times two. SURGEON: Slick Pinon MD HYDRAULIC REPAIRER: None. ANESTHESIA: Spinal with sedation. COMPLICATIONS: None. INDICATIONS FOR PROCEDURE: The patient is a 31-year-old male presents with severe internal hemorrhoids that require blood transfusion. He has failed banding in the office due to pain. Recommendation was to proceed with operative hemorrhoidectomy. Risks and benefits of the procedure were discussed in detail with the patient. Risks include but are not limited bleeding, infection, incontinence and need for further surgery. He understood the risks and signed consent. DESCRIPTION OF PROCEDURE: The patient was brought back to operating room three. After sufficient spinal sedation he was placed in a prone position. Next, the perineal area was sterilely prepped and draped with Betadine. Next, a time-out was done confirm proper patient and proper procedure. Following that, a rectal exam was done. He had good rectal tone. There is no active bleeding currently. However, on placement of bivalve retractor, there were multiple large hemorrhoids all around the rectum. There were two large ones of the left lateral wall; that both were slightly ulcerated with visible vessels in the base of them. These two hemorrhoids were taken, carefully incised circumferentially using a #15 blade scalpel through the anoderm. The hemorrhoid was then excised using the Harmonic focus. Once that was completed, the anoderm was reapproximated with #2-0 chromic suture. The same process was done with both hemorrhoids. At the end of the procedure there was no bleeding. The rectum was packed with some Gelfoam with thrombin for precaution. The patient was then awakened from anesthesia and sent to PACU in stable condition.
== END 2017-04-23 18:58 | disposition home or self-care (01) ==
LOC: M SDC 11:00
PROVIDERS: ATTEND Surgery
DX: K64.8 Other hemorrhoids (principal); I10 Essential (primary) hypertension; F43.10 Post-traumatic stress disorder, unspecified; F41.9 Anxiety disorder, unspecified; Z79.899 Other long term (current) drug therapy; Z88.0 Allergy status to penicillin; G47.30 Sleep apnea, unspecified; Z87.891 Personal history of nicotine dependence
CPT/HCPCS: 46260; 88304; J2250; J2400; J3010

== ENCOUNTER 2017-05-13 17:56 | Observation (INO) | payer OTHER ==
[~2017-05-13] VITALS: Ht 165.1 cm; Wt 84.6 kg
[~2017-05-13 17:56] MED LIST changes: -COLA100C3 PO; +COLA100C5 PO; +FERR1TAB8 PO; -FERR325T PO; +TRAZ50TA11 PO; -TRAZ50TA4 PO
[2017-05-13] MEDS ORDERED: LUNE2TAB23 PO ×2 (18:10→19:27)
[2017-05-13 18:41] LABS: ADD MORPHOLOGY? YES; BASO % 0.8 % (0.0-1.0); EOS # 0.1 K/mm3 (0.0-0.50); EOS % 1.6 % (0.0-3.0); LARGE UNSTAINED CELL # 0.1 K/mm3 (0.0-0.4); LARGE UNSTAINED CELL % 2.4 % (0.0-4.0); LYMPH # 1.4 K/mm3 (1.5-4.5); LYMPH % 25.2 % (24.0-44.0); MEAN CORPUSCULAR HEMOGLOBIN 14.6 pg (27.0-33.0); MEAN CORPUSCULAR HGB CONC 25.9 g/dl (32.0-36.5); MEAN CORPUSCULAR VOLUME 56.3 fl (80.0-96.0); MONO # 0.4 K/mm3 (0.0-0.8); MONO % 7.3 % (0.0-5.0); NEUTROPHILS # 3.5 K/mm3 (1.8-7.7); NEUTROPHILS % 62.8 % (36.0-66.0); PLATELET COUNT, AUTOMATED 326 k/mm3 (150-450); RED CELL DISTRIBUTION WIDTH 21.8 % (11.5-14.5); WHITE BLOOD COUNT 5.5 K/mm3 (4.0-10.0)
[2017-05-13 19:03] LABS: ANION GAP 7 MEQ/L (8-16); BLOOD UREA NITROGEN 16 MG/DL (7-18); CALCIUM LEVEL 8.6 MG/DL (8.5-10.1); CARBON DIOXIDE LEVEL 27 MEQ/L (21-32); CHLORIDE LEVEL 104 MEQ/L (98-107); CREATININE FOR GFR 1.43 MG/DL (0.70-1.30); GLOMERULAR FILTRATION RATE > 60.0 (>60); GLUCOSE, FASTING 77 MG/DL (70-105); POTASSIUM SERUM 3.9 MEQ/L (3.5-5.1); SODIUM LEVEL 138 MEQ/L (136-145)
[2017-05-13] MEDS ORDERED: META58.612 PO (19:27)
[2017-05-13] MEDS ORDERED: COLA100C5 PO (19:27)
[2017-05-13] MEDS ORDERED: ACET50TAOT PO (19:29)
[2017-05-13 20:31] LABS: HYPOCHROMASIA 3+
[2017-05-13 20:32] LABS: ANISOCYTOSIS 3+; MICROCYTOSIS 4+; POIKILOCYTOSIS 1+
[2017-05-13 20:33] LABS: POLYCHROMASIA 1+; SCHISTOCYTES 2+
[2017-05-13] MEDS ORDERED: ACETAMINOPHEN TAB 650MG DOSE (2X325MG) PO PRN (21:30)
--- NOTE | 2017-05-13 22:07 | HPE ---
DATE OF ADMISSION: 05/13/2017 ATTENDING PHYSICIAN: Dr. Lundy CHIEF COMPLAINT: Worsening anemia and feeling fatigued. HISTORY OF THE PRESENT ILLNESS: The patient is a 31-year-old male with a history of thalassemia and chronic anemia, presented to the emergency room (ER) for evaluation of worsening anemia. The history is provided by himself. Per him, he states he was diagnosed with thalassemia type B in 2011 and he received a blood transfusion in 2012 and this year, he had bleeding hemorrhoids, which was treated with surgery. Recently, he states he feels very tired when he moves around or if he is doing anything. He went to the [facility] for followup, and he underwent blood tests which showed he has worsening anemia, hemoglobin and hematocrit down to 6.4 over 24.6, and he was referred here for blood transfusion. Otherwise he denies any other symptoms. REVIEW OF SYSTEMS: Denies fever. No chills. No headache. No blurred vision. Positive exertional shortness of breath and chest tightness. No nausea, no vomiting. No abdominal pain. No black stool. No diarrhea. No tingling, numbness or weakness in the arms or lower extremities but general weakness. All other systems were reviewed but negative. PAST MEDICAL HISTORY: Thalassemia type B with chronic anemia. Bleeding hemorrhoids, status post surgery. PAST SURGICAL HISTORY: Hemorrhoid surgery. FAMILY HISTORY: Positive for anemia and his father has a history of high blood pressure. SOCIAL HISTORY: He smoked before but quit in 2015. No alcohol abuse. No illicit drug abuse, and he is a [employer] and he is active duty at [employer]. ALLERGIES: He is allergic to PENICILLIN only. MEDICATIONS: Medications are reviewed. PHYSICAL EXAMINATION: GENERAL: He is awake, alert, oriented times three. He is not in acute distress. HEENT: Atraumatic. Pupils equal, round, reactive to light. No jaundice and extraocular muscles intact. Ears, nose and throat are normal. Mouth: Mucosa moist, not dry. NECK: No jugular venous distention (JVD), no bruits. LUNGS: Clear. No crackles, no wheezing. HEART: S1, S2 regular. No murmur. ABDOMEN: Soft. Bowel sounds positive, nontender. LOWER EXTREMITIES: No edema in bilateral lower extremities. NEUROLOGIC: Nonfocal. SKIN: No rash. PSYCHOLOGIC: No acute psychosis. DIAGNOSTIC AND LAB STUDIES: CBC and differential: WBC 5.5, hemoglobin and hematocrit 6.4 over 24.6, platelets 325. Sodium 138, potassium 3.9, chloride 104, bicarbonate 27, BUN 16, creatinine 1.4, glucose 77. ASSESSMENT AND PLAN: The patient presented with symptomatic anemia due to thalassemia disease, and he will be admitted for observation. Will type and cross transfuse, and he needs followup with his shirt hemmer as an outpatient.
[2017-05-13 23:00] VITALS: BP 141/78
[2017-05-14] VITALS (8 sets, daily range): BP systolic 128–155; BP diastolic 64–93
[2017-05-14] MEDS ORDERED: DOCUSATE SODIUM 100 MG CAP PO PRN (07:00)
[2017-05-14 07:07] LABS: ADD MORPHOLOGY? YES; BASO % 0.5 % (0.0-1.0); EOS # 0.1 K/mm3 (0.0-0.50); EOS % 2.9 % (0.0-3.0); LARGE UNSTAINED CELL # 0.1 K/mm3 (0.0-0.4); LARGE UNSTAINED CELL % 2.8 % (0.0-4.0); LYMPH # 1.4 K/mm3 (1.5-4.5); LYMPH % 27.8 % (24.0-44.0); MEAN CORPUSCULAR HEMOGLOBIN 17.1 pg (27.0-33.0); MEAN CORPUSCULAR VOLUME 61.1 fl (80.0-96.0); MONO # 0.4 K/mm3 (0.0-0.8); MONO % 8.4 % (0.0-5.0); NEUTROPHILS # 2.6 K/mm3 (1.8-7.7); NEUTROPHILS % 57.6 % (36.0-66.0); PLATELET COUNT, AUTOMATED 246 k/mm3 (150-450); RED CELL DISTRIBUTION WIDTH 27.3 % (11.5-14.5); WHITE BLOOD COUNT 4.5 K/mm3 (4.0-10.0)
[2017-05-14 07:31] LABS: ANION GAP 8 MEQ/L (8-16); BLOOD UREA NITROGEN 15 MG/DL (7-18); CARBON DIOXIDE LEVEL 25 MEQ/L (21-32); CHLORIDE LEVEL 107 MEQ/L (98-107); CREATININE FOR GFR 1.38 MG/DL (0.70-1.30); GLOMERULAR FILTRATION RATE > 60.0 (>60); GLUCOSE, FASTING 81 MG/DL (70-105); POTASSIUM SERUM 4.2 MEQ/L (3.5-5.1); SODIUM LEVEL 140 MEQ/L (136-145)
[2017-05-14] MEDS ORDERED: NS 1,000 ML IV SCH (08:00)
[2017-05-14 08:50] LABS: ANISOCYTOSIS 3+; HYPOCHROMASIA 3+; MICROCYTOSIS 3+
[2017-05-14 16:39] LABS: ANION GAP 8 MEQ/L (8-16); BLOOD UREA NITROGEN 17 MG/DL (7-18); CALCIUM LEVEL 8.6 MG/DL (8.5-10.1); CARBON DIOXIDE LEVEL 23 MEQ/L (21-32); CHLORIDE LEVEL 107 MEQ/L (98-107); CREATININE FOR GFR 1.38 MG/DL (0.70-1.30); GLOMERULAR FILTRATION RATE > 60.0 (>60); GLUCOSE, FASTING 106 MG/DL (70-105); POTASSIUM SERUM 4.1 MEQ/L (3.5-5.1); SODIUM LEVEL 138 MEQ/L (136-145)
[2017-05-14 16:44] LABS: MEAN CORPUSCULAR HEMOGLOBIN 18.9 pg (27.0-33.0); MEAN CORPUSCULAR HGB CONC 29.5 g/dl (32.0-36.5); MEAN CORPUSCULAR VOLUME 63.8 fl (80.0-96.0); RED CELL DISTRIBUTION WIDTH 26.6 % (11.5-14.5); WHITE BLOOD COUNT 4.6 K/mm3 (4.0-10.0)
--- NOTE | 2017-05-14 19:45 | DS.PDOC ---
Discharge Summary General Date of Admission May 13, 2017 at 21:29 Date of Discharge 05/14/2017 Discharge Summary PRIMARY CARE PHYSICIAN: [facility] ATTENDING AT TIME OF DISCHARGE: Dr. Valerio DISCHARGE DIAGNOS(E)S: Symptomatic anemia HPI & HOSPITAL COURSE: The patient presented to the hospital with fatigue, he states that he had chronic blood loss due to hemorrhoids which was repaired approximately 3-4 weeks ago. He did not have any bleeding since that time, but he has been feeling chronically fatigued, therefore his PCP checked his hemoglobin level, and was found to be low he was sent to the hospital for further evaluation and treatment. Upon arrival to the hospital was found to have a hemoglobin of 6.4, he was transfused 2 units of packed red blood cells through the night and was found to be 8.3 in the morning, but he was still feeling significantly fatigued and symptomatic, and he mentioned that he was discharged from the hospital hemoglobin of 8 in the past, and he felt terrible for weeks, therefore 2 additional units were administered, his H&H was rechecked later that afternoon and found to be 10.0. He has not had bleeding for weeks since his surgical correction of hemorrhoids. No further intervention is indicated at this time, therefore he appears to be stable for discharge. PHYSICAL EXAMINATION ON DISCHARGE: GENERAL: Awake, alert, oriented 3. He is in no apparent distress. CARDIOVASCULAR EXAMINATION: Regular rate and rhythm, with no rubs, gallops, or murmur. RESPIRATORY EXAMINATION: Clear to auscultation bilaterally with no wheezes, rales, or rhonchi. ABDOMINAL EXAMINATION: Soft, nontender, nondistended. Bowel sounds present. EXTREMITIES: No clubbing or edema noted. 2+ pulses in the radial bilaterally. DISPOSITION: Home DISCHARGE INSTRUCTIONS: With follow-up with primary care provider on [place] within 7 days. Regular diet. Activity as tolerated. If symptoms return, or if you experience worsening of your symptoms, please call your doctor or return to the emergency department. My preceptor for this patient encounter was physically present in the building during the encounter and was fully available. As needed, all aspects of the patient interview, examination, medical decision making process, and medical care plan development were reviewed and approved by the preceptor. Preceptor is aware and concurs with the plan as stated in the body of this note and will attest to such by his/her cosignature. Vital Signs/I&Os Vital Signs Date Time Temp Pulse Resp B/P (MAP) Pulse Ox O2 Delivery O2 Flow Rate FiO2 05/14/17 16:00 98.8 78 18 155/93 (113) 99 Room Air I&O- Last 24 Hours up to 6 AM 05/14/17 06:00 Intake Total 960 ml Output Total 300 ml Balance 660 ml Laboratory Data Labs 24H Laboratory Tests 2 05/14/17 06:40: White Blood Count 4.5, Red Blood Count 4.87, Hemoglobin 8.3L, Hematocrit 29.8L, Mean Corpuscular Volume 61.1L, Mean Corpuscular Hemoglobin 17.1L, Mean Corpuscular Hemoglobin Concent 28.0L, Red Cell Distribution Width 27.3H, Platelet Count 246, Neutrophils (%) (Auto) 57.6, Lymphocytes (%) (Auto) 27.8, Monocytes (%) (Auto) 8.4H, Eosinophils (%) (Auto) 2.9, Basophils (%) (Auto) 0.5 , Neutrophils # (Auto) 2.6, Lymphocytes # (Auto) 1.4L, Monocytes # (Auto) 0.4, Eosinophils # (Auto) 0.1, Basophils # (Auto) 0.0, Large Unclassified Cells % 2.8 , Large Unclassified Cells # 0.1, Platelet Estimate NORMAL, Hypochromasia 3+, Anisocytosis 3+, Microcytosis 3+, Anion Gap 8, Glomerular Filtration Rate > 60.0 , Blood Urea Nitrogen 15, Creatinine 1.38H, Sodium Level 140, Potassium Level 4.2, Chloride Level 107, Carbon Dioxide Level 25, Calcium Level 9.0 05/14/17 15:48: Anion Gap 8, Glomerular Filtration Rate > 60.0, Blood Urea Nitrogen 17, Creatinine 1.38H, Sodium Level 138, Potassium Level 4.1, Chloride Level 107, Carbon Dioxide Level 23, Calcium Level 8.6 CBC/BMP Laboratory Tests 05/14/17 06:40 Red Blood Count 4.87, Mean Corpuscular Volume 61.1 L, Mean Corpuscular Hemoglobin 17.1 L, Mean Corpuscular Hemoglobin Concent 28.0 L, Red Cell Distribution Width 27.3 H, Neutrophils (%) (Auto) 57.6, Lymphocytes (%) (Auto) 27.8, Monocytes (%) (Auto) 8.4 H, Eosinophils (%) (Auto) 2.9, Basophils (%) ( Auto) 0.5, Neutrophils # (Auto) 2.6, Lymphocytes # (Auto) 1.4 L, Monocytes # ( Auto) 0.4, Eosinophils # (Auto) 0.1, Basophils # (Auto) 0.0, Calcium Level 9.0 05/14/17 15:48 Red Blood Count 5.29, Mean Corpuscular Volume 63.8 L, Mean Corpuscular Hemoglobin 18.9 L, Mean Corpuscular Hemoglobin Concent 29.5 L, Red Cell Distribution Width 26.6 H, Calcium Level 8.6 Discharge Medications Scheduled Eszopiclone (Lunesta) Unknown Strength Tab, Unknown Dose PO QHS, (Reported) NEW MED, PT HAS NOT YET STARTED Ferrous Sulfate (Ferrous Sulfate) 325 Mg Tab, 325 MG PO DAILY, (Reported) Tizanidine Hydrochloride (Zanaflex) 4 Mg Cap, 4 MG PO QHS, (Reported) Scheduled PRN (Metamucil Fiber) 51.7 % Gerhard, 51.7 % PO DAILY PRN for CONSTIPATION, (Reported) Acetaminophen (Acetaminophen) 500 Mg Tab, 500 MG PO for HEADACHE, (Reported) Docusate Sodium (Colace) 100 Mg Cap, 100 MG PO DAILY PRN for CONSTIPATION, ( Reported) Allergies Coded Allergies: Penicillins (Verified Allergy, Severe, swelling, 05/13/17) GME ATTESTATION GME ATTESTATION My preceptor for this patient encounter was physically present in the building during the encounter and was fully available. As needed, all aspects of the patient interview, examination, medical decision making process, and medical care plan development were reviewed and approved by the preceptor. Preceptor is aware and concurs with the plan as stated in the body of this note and will attest to such by his/her cosignature. ATTENDING NOTE I, You Valerio, have both independently examined this patient as well as reviewed the documentation. I have discussed in detail with the resident the findings and plan of treatment as documented in the residents documentation. I will continue to follow the patient and offer further guidance to the patients care as necessary. SHAVON ANNE DO May 14, 2017 19:44 YOU VALERIO MD Jun 02, 2017 14:09
[2017-05-14] MEDS ORDERED: tiZANidine 4 MG TAB PO SCH (21:00)
== END 2017-05-14 17:35 | disposition home or self-care (01) ==
LOC: M ED 17:56 → M ED INP 21:29 → M PED 23:04
PROVIDERS: ADMIT Hospitalist; ATTEND Internal Medicine
DX: D64.9 Anemia, unspecified (principal); Z79.899 Other long term (current) drug therapy; Z87.891 Personal history of nicotine dependence
CPT/HCPCS: 36415; 36430; 80048; 85025; 85027; 86850; 86900; 86901; 86920; 93041; 94760; 99285; P9016

== ENCOUNTER → 2017-08-13 | Outpatient (CLI) | payer OTHER ==
[~2017-08-13] MED LIST changes: +ACET50TAOT PO; +CONRAY-43 43% 50ML VIAL (Q9960) As Ordered ONE; +LUNE2TAB23 PO; +META58.612 PO
--- NOTE | 2017-08-13 11:06 | REP ---
MR ARTHROGRAM RIGHT SHOULDER: TECHNIQUE: Axial T2 fat sat, coronal oblique T1, T2 fat sat, post arthrogram axial T1 fat sat, proton density, coronal oblique T1 fat sat, T2 sat, sagittal oblique T2 fat sat, ABER T1 fat sat. The supraspinatus tendon demonstrates increased signal on T2-weighted images predominantly in the anterior aspect of the tendon. The signal appears to extend through the entire thickness of the anterior tendon distal insertion site. The findings are consistent with a partial full thickness tear. The other rotator cuff tendons appear intact. Minimal hypertrophic degenerative changes are seen at the acromioclavicular joint with a type I acromion. Biceps tendon is within the bicipital groove. There is no Hill-Sacks deformity. The deltoid muscle demonstrates no abnormal signal. There is a SLAP tear noted. There is a very small amount of subchondral marrow edema in the superolateral humeral head. No other abnormal marrow signal in seen. There is a normal amount of joint fluid. There is a tiny amount of fluid in the subacromial subdeltoid bursae. No paralabral cyst is seen. IMPRESSION: Partial full-thickness tear anterior distal supraspinatus tendon. SLAP tear. Tiny amount of fluid in the subacromial subdeltoid bursae. Signed by Slick Barnes MD 08/13/2017 05:04 P
--- NOTE | 2017-08-13 15:34 | REP ---
RIGHT SHOULDER ARTHROGRAM: The procedure was performed by MERRY Sexton under the direct supervision of Dr. Barnes. The procedure along with its risks, benefits, and complications were discussed with the patient prior to the examination. Informed consent was obtained both verbally and written. The right humeral head was localized using fluoroscopic guidance. The skin was marked, prepped and draped in the usual sterile fashion. 1% lidocaine was used for local anesthetic. Under fluoroscopic guidance a 22-gauge spinal needle was inserted and advanced to the humeral head. 0.5 mL of Conray-60 was injected to verify placement. 11 mL of a solution containing 19 mL of sterile saline and 0.15 mL of gadolinium were injected into the joint space. The needle was then removed. The patient tolerated the procedure well and had no immediate complications. 9 seconds of fluoroscopy time were used. Reviewed by MERRY Solorio 08/13/2017 04:37 PEdited and Signed by Slick Barnes MD 08/13/2017 05:01 P
== END ==
LOC: M RADPRO 08:05
PROVIDERS: ATTEND Physician Assistant
DX: M25.511 Pain in right shoulder (principal); M24.111 Other articular cartilage disorders, right shoulder; Z88.0 Allergy status to penicillin
CPT/HCPCS: 23350; 73223; 77002; A9576; Q9960

== ENCOUNTER → 2017-12-05 | Outpatient (CLI) | payer OTHER | LOC: M PAIN 15:15 | DX: G89.29 Other chronic pain (principal); M51.17 Intervertebral disc disorders with radiculopathy, lumbosacral region; D56.9 Thalassemia, unspecified; J45.909 Unspecified asthma, uncomplicated; Z79.899 Other long term (current) drug therapy; Z88.0 Allergy status to penicillin; Z87.891 Personal history of nicotine dependence | CPT/HCPCS: G0463 ==

== ENCOUNTER → 2017-12-23 | Outpatient (CLI) | payer OTHER | LOC: M LRY 16:18 | DX: R05 Cough (principal) | CPT/HCPCS: 71046; G0463 ==

== ENCOUNTER → 2018-01-13 | Outpatient (REF) | payer OTHER | LOC: M SFHCLERA 13:13 | DX: J02.9 Acute pharyngitis, unspecified (principal) ==

== ENCOUNTER → 2018-04-03 | Outpatient (CLI) | payer OTHER | LOC: M RAD 16:14 | DX: S22.31XD Fracture of one rib, right side, subsequent encounter for fracture with routine healing (principal); X58.XXXD Exposure to other specified factors, subsequent encounter; Y92.89 Other specified places as the place of occurrence of the external cause | CPT/HCPCS: 71250 ==